=== PATIENT | female | born 1955 | race African-American/Black ===

== ENCOUNTER 2017-05-29 12:44 | Emergency (ER) | payer MEDICARE, MEDICAID ==
[~2017-05-29] VITALS: Ht 170.2 cm; Wt 95.5 kg
[2017-05-29] MEDS ORDERED: KETOROLAC 15MG/ML VIAL IM ONE (14:45)
[2017-05-29 14:48] VITALS: BP 155/94
== END 2017-05-29 14:52 | disposition home or self-care (01) ==
LOC: ER 12:44
DX: M54.42 Lumbago with sciatica, left side (principal); M54.41 Lumbago with sciatica, right side; R03.0 Elevated blood-pressure reading, without diagnosis of hypertension; F17.210 Nicotine dependence, cigarettes, uncomplicated; Z88.2 Allergy status to sulfonamides
CPT/HCPCS: 96372; 99283; J1885